=== PATIENT | female | born 1980 | race Hispanic/Latino ===

== ENCOUNTER 2021-05-11 08:56 | Outpatient (CLI) | payer OTHER | END 2021-05-11 08:57 | disposition home or self-care (01) | LOC: BICULT 08:56 | PROVIDERS: ATTEND Internal Medicine | DX: R19.4 Change in bowel habit (principal); R74.8 Abnormal levels of other serum enzymes; K21.9 Gastro-esophageal reflux disease without esophagitis; R16.2 Hepatomegaly with splenomegaly, not elsewhere classified | CPT/HCPCS: 76705 ==

== ENCOUNTER 2022-03-11 15:52 | Outpatient (CLI) | payer OTHER | END 2022-03-11 15:53 | disposition home or self-care (01) | LOC: BICMAMMO 15:52 | PROVIDERS: ATTEND Physician Assistant | DX: Z12.31 Encounter for screening mammogram for malignant neoplasm of breast (principal) | CPT/HCPCS: 77063; 77067 ==

== ENCOUNTER 2024-05-22 15:14 | Outpatient (CLI) | payer OTHER | END 2024-05-22 15:15 | disposition home or self-care (01) | LOC: ULT 15:14 | PROVIDERS: ATTEND Physician Assistant | DX: H53.9 Unspecified visual disturbance (principal); I77.9 Disorder of arteries and arterioles, unspecified | CPT/HCPCS: 93880 ==

== ENCOUNTER 2024-05-30 15:27 | Outpatient (CLI) | payer OTHER | END 2024-05-30 15:28 | disposition home or self-care (01) | LOC: BICCT 15:27 | PROVIDERS: ATTEND Physician Assistant | DX: R93.89 Abnormal findings on diagnostic imaging of other specified body structures (principal) | CPT/HCPCS: 70498; 82565 ==